=== PATIENT | male | born 1965 | race Two or more races ===

== ENCOUNTER 2022-07-05 06:32 | Day surgery (SDC) | payer OTHER ==
[~2022-07-05] VITALS: Ht 167.6 cm; Wt 76.2 kg
[~2022-07-05 06:32] MED LIST: LEVOTHYROXINE25 MCG PO; ZESTRIL20 MG PO
[2022-07-05] MEDS ORDERED: CILOXAN5 ML OTIC (13:39)
[2022-07-05] MEDS ORDERED: CEPHALEXIN500 MG PO (13:45)
== END 2022-07-05 15:50 | disposition home or self-care (01) ==
LOC: CIR.AMB 06:32
PROVIDERS: ATTEND Otolaryngology Otology & Neurotology
DX: L82.1 Other seborrheic keratosis (principal); I10 Essential (primary) hypertension; E78.5 Hyperlipidemia, unspecified; E03.9 Hypothyroidism, unspecified; Z20.822 Contact with and (suspected) exposure to COVID-19